=== PATIENT | male | born 1995 | race African-American/Black ===

== ENCOUNTER 2017-01-15 09:10 | Emergency (ER) | payer OTHER ==
[~2017-01-15] VITALS: Ht 172.7 cm; Wt 90.0 kg
[2017-01-15 14:15] VITALS: BP 133/83
== END 2017-01-15 14:29 | disposition home or self-care (01) ==
LOC: ER 13:29
DX: J02.9 Acute pharyngitis, unspecified (principal); R21 Rash and other nonspecific skin eruption
CPT/HCPCS: 87070; 87430; 99284

== ENCOUNTER 2022-11-24 13:58 | Emergency (ER) | payer OTHER ==
[~2022-11-24] VITALS: Ht 177.8 cm; Wt 78.0 kg
[2022-11-24 14:00] VITALS: BP 129/84; PULSE 89; RESP 20; TEMP 98.9; O2SAT 97
[2022-11-24] MEDS ORDERED: IBUPROFEN 600MG TABLET PO ONE (21:15)
[2022-11-24] MEDS ORDERED: IBUP-2029 MT (21:36)
[2022-11-24] MEDS ORDERED: CYCL10TA21 MT (21:36)
== END 2022-11-24 22:50 | disposition home or self-care (01) ==
LOC: ER 13:58
DX: M25.512 Pain in left shoulder (principal); M25.562 Pain in left knee; V49.9XXA Car occupant (driver) (passenger) injured in unspecified traffic accident, initial encounter; Y93.89 Activity, other specified; Y92.89 Other specified places as the place of occurrence of the external cause; Y99.8 Other external cause status
CPT/HCPCS: 73030; 73562; 99284